=== PATIENT | female | born 1975 | race American Indian/Alaskan Native ===

== ENCOUNTER 2018-01-28 20:05 | Emergency (ER) | payer MEDICARE, OTHER ==
[2018-01-28 20:05] VITALS: BMI 23.3
[2018-01-28] MEDS ORDERED: Sodium Chloride 0.9% 1,000 ML IV STA (20:37)
[2018-01-28 20:54] LABS: BASO % 0.7 % (0.0-2.0); EOS # 0.1 K/uL (0.0-0.7); HEMOGLOBIN 13.6 g/dL (12.0-16.0); LYMPH # 1.8 K/uL (1.0-4.3); LYMPH % 26.6 % (20.0-40.0); MEAN CELL VOLUME 91.1 fl (81.0-99.0); MEAN CORPUSCULAR HEMOGLOBIN 30.5 pg (27.0-31.0); MEAN CORPUSCULAR HGB CONC 33.5 g/dL (33.0-37.0); MEAN PLATELET VOLUME 8.4 fl (7.2-11.7); MONO # 0.5 K/uL (0.0-0.8); MONO % 6.9 % (0.0-10.0); NEUT # 4.5 K/uL (1.8-7.0); NEUT % 64.8 % (50.0-75.0); NRBC % 0.1 % (0.0-0.0); RBC 4.44 Mil/uL (3.80-5.20); RED CELL DISTRIBUTION WIDTH 15.9 % (11.5-14.5); WHITE BLOOD COUNT 6.9 K/uL (4.8-10.8)
--- NOTE | 2018-01-28 21:36 | ED PDOC ---
HPI: Psych/Substance Abuse Time Seen by Provider: 01/28/18 20:16 Chief Complaint (Nursing): Substance Abuse History Per: Patient, EMS, Motor Mechanic (cement mason [id number] (Lyubov)) Additional Complaint(s): As per EMS [facility] Pt. admits to using PCP at approximately [phone] today. Pt. states she feels fine and has no complaints at this time. Denies chest pain, SOB, headache, injury, abd pain, fever, palpitations, hx of HTN. Against Medical Advice - AMA Patient Left Against Medical Advice: The patient declines admission to the hospital and wishes to leave the Emergency Department. This action is against my medical advice. This decision was made with informed refusal. The patient was told that admission to the hospital is necessary. Explanation of the reasons why were discussed. The risks of leaving were explained to the patient and include, but are not limited to, worsening of known or currently unknown conditions, permanent disability and from undiagnosed or untreated conditions. The patient has the capacity to make this informed decision and understands my explanation of the current medical problem and risks of leaving. The patient voluntarily accepts these risks and signed an AMA form documenting our conversation. The patient was given the opportunity to ask questions and reconsider. The patient was encouraged to return to the Emergency Department at any time for further care. Past Medical History Reviewed: Historical Data, Nursing Documentation, Vital Signs Vital Signs: Last Vital Signs Temp 98.0 F 01/28/18 20:09 Pulse 117 H 01/28/18 20:09 Resp 16 01/28/18 20:09 BP 139/100 H 01/28/18 20:09 Pulse Ox 97 01/28/18 20:09 - Surgical History Surgical History: No Surg Hx - Family History Family History: States: No Known Family Hx - Social History Drugs: Other (PCP) - Immunization History Hx Tetanus Toxoid Vaccination: No Hx Influenza Vaccination: No Hx Pneumococcal Vaccination: No - Home Medications Home Medications: Ambulatory Orders Medication Instructions Recorded Metronidazole [Metrocream] 37.5 mg TP DAILY #187.5 mg 02/08/15 Nitrofurantoin Macrocrystals 100 mg PO BID #20 cap 02/08/15 [Macrobid] - Allergies Allergies/Adverse Reactions: Allergies Allergy/AdvReac Type Severity Reaction Status Date / Time No Known Allergies Allergy Verified 01/28/18 20:09 Review of Systems ROS Statement: Except As Marked, All Systems Reviewed And Found Negative Physical Exam - Reviewed Nursing Documentation Reviewed: Yes Vital Signs Reviewed: Yes - Physical Exam Appears: Positive for: Well, Non-toxic, No Acute Distress Head Exam: Positive for: ATRAUMATIC, NORMAL INSPECTION, NORMOCEPHALIC Skin: Positive for: Normal Color, Warm. Negative for: Rash Eye Exam: Positive for: EOMI, Normal appearance, PERRL ENT: Positive for: Normal ENT Inspection Neck: Positive for: Normal, Painless ROM Cardiovascular/Chest: Positive for: Tachycardia. Negative for: Murmur, Irregularly Irregular Respiratory: Positive for: CNT, Normal Breath Sounds Gastrointestinal/Abdominal: Positive for: Normal Exam, Soft. Negative for: Tenderness Back: Positive for: Normal Inspection. Negative for: L CVA Tenderness, R CVA Tenderness, Vertebral Tenderness Extremity: Positive for: Normal ROM Neurologic/Psych: Positive for: Alert, Oriented (x3), Mood/Affect (calm, cooperative), Gait (steady, unassisted). Negative for: Aphasia, Facial Droop - Laboratory Results Result Diagrams: 01/28/18 20:45 - ECG O2 Sat by Pulse Oximetry: 97 Medical Decision Making Medical Decision Making: Labs ordered. EKG: SR at [address]-T wave changes. Pt. initially agreed to blood work eventually decided to sign AMA as she has to take care of child. Pt. informed of risk of leaving ED prior to obtaining diagnostic results. Offers no complaints. Gait remains steady and unassisted. Pt. remained calm and cooperative during ED stay. Pt. signed AMA form with circuit designer (Lyubov; [id number]). Disposition - Clinical Impression Clinical Impression: Left against medical advice, Tachycardia, Substance abuse - Disposition Referrals: [facility] [Outside] Disposition: Against Medical Advice Disposition Time: 21:21 Condition: FAIR Additional Instructions: JAQUELIN BARRIOS, thank you for letting us take care of you today. Your provider was Yanet Chi MD and you were treated for POSS SUBSTANCE ABUSE. The emergency medical care you received today was directed at your acute symptoms. If you were prescribed any medication, please fill it and take as directed. It may take several days for your symptoms to resolve. Return to the Emergency Department if your symptoms worsen, do not improve, or if you have any other problems. Please contact your doctor or call one of the physicians/clinics you have been referred to that are listed on the Patient Visit Information form that is included in your discharge packet. Bring any paperwork you were given at discharge with you along with any medications you are taking to your follow up visit. Our treatment cannot replace ongoing medical care by a primary care provider outside of the emergency department. Thank you for allowing the [facility] team to be part of your care today. If you had an X-Ray or CT scan: A Radiologist will review the ED reading if any change in treatment is needed we will contact you. If you had a blood, urine, or wound culture: It will take several days for the results, if any change in treatment is needed we will contact you. If you had an STI test: It will take 48 hours for the results. Please call after 1 week if you have not heard back. Instructions: Drug Abuse and Drug Addiction (DC), Leaving Against Medical Advice, Tachycardia (DC) Forms: [employer] (Bengali) Print Language: PRYDEINIG
[2018-01-28 21:44] VITALS: PULSE 97; RESP 18; TEMP 98.3; O2SAT 99
[2018-01-28 22:08] VITALS: BP 155/78
--- NOTE | 2018-01-29 08:28 | CARD ---
APPROVED REPORT Date of service: 01/28/2018 <Conclusion> Normal sinus rhythm Left ventricular hypertrophy Abnormal ECG
[2018-01-29 08:29] LABS: BLOOD UREA NITROGEN 11 mg/dl (7-17); GFR NON-AFRICAN AMERICAN > 60
[2018-01-29 08:30] LABS: CALCIUM 10.5 mg/dL (8.4-10.2)
[2018-01-29 08:31] LABS: ALB/GLOB RATIO 1.5 (1.0-2.1); ALT/SGPT 18 U/L (9-52); AST/SGOT 40 U/L (14-36)
== END 2018-01-28 21:50 | disposition left against medical advice (07) ==
LOC: H.ER 20:05
DX: F19.10 Other psychoactive substance abuse, uncomplicated (principal); R00.0 Tachycardia, unspecified